=== PATIENT | female | born 1985 | race Caucasian/White ===

== ENCOUNTER 2018-11-16 18:50 | Inpatient (IN) | payer OTHER ==
[2018-11-16] MEDS ORDERED: Dinoprostone* 10 MG VAG.SUPP VAGINAL ONE (20:52)
[2018-11-16] MEDS ORDERED: Buffered Lidocaine 1% SYRIN* 1 ML/SYRINGE INTRADERM ONE (20:52)
[2018-11-16] MEDS ORDERED: Lactated Ringers 1000 ML Bag* 1,000 ML IV ONE (20:52)
[2018-11-16] MEDS ORDERED: Lactated Ringers 1000 ML Bag* 1,000 ML IV SCH (21:00)
--- NOTE | 2018-11-16 21:02 | HP ---
General Information - Reason for Visit Pt presents tonight at 40+3 for cervical ripening, plan for continued induction tomorrow. No complaints, active FMs, no VB/LOF. Does not feel any ctx. has been uncomplicated. - General Information Maternal Age: 33 Grav: 1 Para: 0 SAB: 0 IEA: 0 Estimated Due Date: 11/13/18 Determined By: LMP Gestational Age in Weeks/Days: 40+3 Maternal Blood Type and Rh: O Positive - Results this Serology/RPR Result: Non-Reactive Rubella Result: Non-Immune HBsAg Result: Negative HIV Result: Negative GBS Culture Result: Negative Past Medical History Delivery History: See Records Pertinent Past Medical History: Non-Contributory Pertinent Past Surgical History: None Pertinent Family History: Non-Contributory - Antepartal Records Antepartal Records: Reviewed, Uncomplicated Review of Systems Constitutional: Comfortable CV Complaint: No Respiratory: Shortness of Breath: No Gastrointestinal: No Nausea/Vomiting Genitourinary: No Dysuria, No Bleeding, No Leaking Fluid Musculoskeletal: No Complaint Neurological: No Headache Movement: Normal Exam Allergies/Adverse Reactions: Allergies No Known Allergies Allergy (Verified 11/16/18 19:44) VS normal, afebrile - Measurements Height: 5 ft 2 in Weight: 149 lb Weight in lbs: [phone] Body Mass Index (BMI): 27.2 Pre- Weight: 120 lb Weight Gained This : 29 lbs and 0 ozs - Exam Breast: Breast Exam Deferred CVA: No CVA Tenderness Heart: Normal Rhythm/Heart Sounds HEENT: No Significant Findings Lungs: Clear Bilaterally Rectal: Rectal Exam Deferred - Abdominal Exam Abdomen Exam: Non-Tender, Fundal Height Consistent with Dates Targeted Exam Findings Estimated Weight: 7 lbs Cervical Exam: 1cm Effacement: <50% Station: -3 Presenting Part: Vertex Membrane Status: Intact Bleeding/Discharge: None EFM Findings - External Monitor Findings Baseline Heart Rate: 140 External Monitor Findings: Accelerations Present, No Pattern of Variable or Late Decelerations, Variability Moderate, Baseline Stable Contractions: Irregular, Mild Assessment/Plan - Assessment 40+3 wks here for labor induction, starting with cervical ripening with unfavorable cervix. Cervidil placed. Very reassuring FHT. - Obstetrical Risk Factors Obstetrical Risk Factors: Post-Dates - Plan Plan: Cervical Ripening - Date/Time of Admission Date of Admission: 11/16/18 Time of Admission: 21:41
[2018-11-17] MEDS ORDERED: Misoprostol TAB* 100 MCG ONE (11:17)
[2018-11-17] MEDS ORDERED: Misoprostol TAB* 100 MCG VAGINAL ONE ×2 (11:19→14:47)
--- NOTE | 2018-11-17 11:19 | PN ---
Progress Note - Progress Note Date of Service: 11/17/18 Note: cervidil in overnight for cervical ripening . cervix 1 cm posterior -2 . vertex. attempted balloon placement sans success. will try misoprostol 25 mcg vaginally sag
[2018-11-17 18:38] LABS: Urine Benzodiazepine Screen None Detected (None Detect); Urine Opiates Screen None Detected (None Detect)
[2018-11-17 21:21] LABS: ABS Basophils 0.1 10^3/ul (0-0.2); ABS Lymphocytes 1.7 10^3/ul (1.0-4.8); ABS Monocytes 0.8 10^3/ul (0-0.8); ABS Neutrophils 6.7 10^3/ul (1.5-7.7); Eosinophil % 0.5 %; Hematocrit 34 % (35-47); Hemoglobin 11.7 g/dL (12.0-16.0); Mean Corpuscular HGB Conc 34 g/dL (31-36); Mean Corpuscular Hemoglobin 29 pg (27-31); Mean Corpuscular Volume 85 fL (80-97); Mean Platelet Volume 9.3 fL (7.4-10.4); Nucleated Red Blood Cells % 0.1; Platelet Count 214 10^3/uL (150-450); Red Blood Count 4.06 10^6 /uL (3.70-4.87); Red Cell Distribution Width 15 % (10-15); White Blood Count 9.3 10^3/uL (3.5-10.8)
[2018-11-17] MEDS ORDERED: OBEPIDURAL* 250 ML EPIDURAL ONE (22:04)
[2018-11-17] MEDS ORDERED: Oxytocin in LR* 20 UNITS/1,000 ML BAG IVPB SCH (23:00)
[2018-11-17] MEDS ORDERED: Sodium Citrate/Citric Acid* 15 ML UDC PO PRN (23:20)
[2018-11-17] MEDS ORDERED: Famotidine TAB* 20 MG PO PRN (23:20)
[2018-11-17] MEDS ORDERED: Lactated Ringers 1000 ML Bag* 1,000 ML IV ONE (23:20)
[2018-11-17] MEDS ORDERED: Phenylephrine 40 MCG/ML SYRINGE IV PUSH PRN ×2 (23:20)
[2018-11-17] MEDS ORDERED: Lactated Ringers 1000 ML Bag* 500 ML IV PRN ×2 (23:20)
[2018-11-17] MEDS ORDERED: EPHEDrine (Pressors)* 50 MG/ML VIAL IV PUSH PRN ×2 (23:20)
[2018-11-17] MEDS ORDERED: Lactated Ringers 1000 ML Bag* 1,000 ML IV SCH (23:45)
[2018-11-17] MEDS ORDERED: OBEPIDURAL* 250 ML EPIDURAL SCH (23:45)
--- NOTE | 2018-11-18 08:19 | PN ---
Progress Note - Progress Note Date of Service: 11/18/18 Note: S: Assuming care of Evelin tan 33 year-old G1 here for postdates induction of labor from Dr. Quintero. Pt resting comfortably in bed. Reports some lower abdominal tightening and pressure with UCs. Increasing in intensity over the last few hours. O: T 100 BP 129/84 HR 66 FHT 125bpm. Moderate variability. +Accels. No decels UCs q 2-3 min, IV pit at 4mu/min VE: anterior lip/100%/vtx +1 A: IUP at 40-5/7 in active labor No evidence of metabolic acidemia P: Anticipate trial of pushing soon
--- NOTE | 2018-11-18 11:07 | PN ---
Progress Note - Progress Note Date of Service: 11/18/18 Note: Quick Note: Pt pushing effectively since 920 with good decent initially. Over the last 30 min + caput descending without much change in position of head. Pt has been changing pushing positions from supine to side lie to squatting to hands and knees. Strong maternal pushing effort continues. O2 by mask intermittently due to Cat II FHT, variability maintained. Will continue to monitor closely. Dr. Hyde in house
[2018-11-18] MEDS ORDERED: Glycerin ADULT SUPP PR PRN (12:51)
[2018-11-18] MEDS ORDERED: Dibucaine 1% 28.35 GM TUBE PR PRN (12:51)
[2018-11-18] MEDS ORDERED: Acetaminophen TAB* 325 MG PO PRN (12:51)
[2018-11-18] MEDS ORDERED: Lactated Ringers 1000 ML Bag* 1,000 ML IV SCH (13:00)
--- NOTE | 2018-11-18 13:02 | PROCNOTE ---
[facility] OB: Delivery Note - Delivery A Date of : 11/18/18 Time of : 12:30 Sex: Male Weight at : 6 lb 11 oz Score 1 Minute: 7 Score 5 Minutes: 9 Gestational Age in Weeks and Days at Delivery: 40 Weeks and 5 Days Delivery Method: Low Vacuum Extraction, Vaginal Labor: Induced Did Patient attempt ?: N/A, No Previous Amniotic Fluid: Clear Estimated Blood Loss: 200 Anesthesia/Analgesia: CEI for Labor Delivered By: Cyrus Hyde - Nursery Level of Nursery: Regular/Bedside - Perineum Perineal Injury: Midline Episiotomy Perineal Repair: By Delivering Practioner - repaired with 3-0 vycril suture with good approximation of tissue under local injected lidocaine. - Events Delivery Events of Note: Pitocin During Labor, Other - Prolonged second stage of labor and maternal exhaustion.
[2018-11-18] MEDS ORDERED: Lidocaine 1% INJ* 10 MG/ML 30 ML SDV ONE (13:54)
[2018-11-18] MEDS: Witch Hazel PAD* JAR TOPICAL PRN (14:55)
[2018-11-18] MEDS: Docusate CAP* 100 MG PO SCH ×2 (14:56→21:05)
[2018-11-18] MEDS: Ibuprofen TAB* 600 MG PO PRN ×2 (14:56→21:05)
[2018-11-18] MEDS ORDERED: Simethicone TAB* 80 MG TAB.CHEW PO SCH (17:30)
[2018-11-19 06:20] LABS: ABS Basophils 0.1 10^3/ul (0-0.2); ABS Eosinophils 0.1 10^3/ul (0-0.6); ABS Lymphocytes 2.2 10^3/ul (1.0-4.8); ABS Monocytes 0.9 10^3/ul (0-0.8); Hematocrit 30 % (35-47); Hemoglobin 10.3 g/dL (12.0-16.0); Lymphocyte % 16.5 %; Mean Corpuscular HGB Conc 34 g/dL (31-36); Mean Corpuscular Hemoglobin 29 pg (27-31); Mean Corpuscular Volume 85 fL (80-97); Mean Platelet Volume 9.2 fL (7.4-10.4); Platelet Count 185 10^3/uL (150-450); Red Blood Count 3.54 10^6 /uL (3.70-4.87); Red Cell Distribution Width 15 % (10-15); White Blood Count 13.3 10^3/uL (3.5-10.8)
[2018-11-19] MEDS: Ibuprofen TAB* 600 MG PO PRN ×3 (08:25→21:52)
[2018-11-19] MEDS: Docusate CAP* 100 MG PO SCH ×3 (08:25→20:22)
[2018-11-19] MEDS ORDERED: Ferrous Gluconate TAB* 324 MG TAB PO SCH (09:00)
[2018-11-19] MEDS: Witch Hazel PAD* JAR TOPICAL PRN (18:30)
[2018-11-20] MEDS: Ibuprofen TAB* 600 MG PO PRN ×2 (03:53→10:05)
[2018-11-20] MEDS ORDERED: Measles, Mumps,Rubella VACC* 0.5 ML/VIAL SUBCUT ONE (09:06)
[2018-11-20] MEDS ORDERED: Varicella Virus Vaccine Live* 0.5 ML VIAL SUBCUT ONE (09:07)
[2018-11-20] MEDS: Docusate CAP* 100 MG PO SCH (10:05)
[2018-11-20 10:40] VITALS: BP 119/76
== END 2018-11-20 11:35 | disposition home or self-care (01) | DRG 560 ==
LOC: MCHOBOUT 18:50 → MCHOB 20:54
PROVIDERS: ADMIT Obstetrics & Gynecology; ATTEND Obstetrics & Gynecology
PROC: 10D07Z6 Extraction of Products of Conception, Vacuum, Via Natural or Artificial Opening (ICD-10-PCS; principal; 2018-11-18)
PROC: 3E0P7VZ Introduction of Hormone into Female Reproductive, Via Natural or Artificial Opening (ICD-10-PCS; 2018-11-18)
PROC: 10907ZC Drainage of Amniotic Fluid, Therapeutic from Products of Conception, Via Natural or Artificial Opening (ICD-10-PCS; 2018-11-18)
PROC: 3E033VJ Introduction of Other Hormone into Peripheral Vein, Percutaneous Approach (ICD-10-PCS; 2018-11-18)
PROC: 4A1HXCZ Monitoring of Products of Conception, Cardiac Rate, External Approach (ICD-10-PCS; 2018-11-18)
PROC: 0W8NXZZ Division of Female Perineum, External Approach (ICD-10-PCS; 2018-11-18)
DX: O48.0 Post-term pregnancy (principal); Z37.0 Single live birth; Z3A.40 40 weeks gestation of pregnancy; O77.0 Labor and delivery complicated by meconium in amniotic fluid; O75.81 Maternal exhaustion complicating labor and delivery; O63.1 Prolonged second stage (of labor)
CPT/HCPCS: 36415; 80307; 85025; 86850; 86900; 86901; 90707; A9270-GY; S0191

== ENCOUNTER 2021-09-26 19:57 | Inpatient (IN) ==
[2021-09-26 20:43] LABS: Hematocrit 35 % (35-47); Hemoglobin 11.8 g/dL (12.0-16.0); Mean Corpuscular HGB Conc 34 g/dL (31-36); Mean Corpuscular Hemoglobin 31 pg (27-31); Mean Corpuscular Volume 90 fL (80-97); Mean Platelet Volume 8.4 fL (7.4-10.4); Platelet Count 206 10^3/uL (150-450); Red Blood Count 3.82 10^6 /uL (3.70-4.87); Red Cell Distribution Width 15 % (10-15)
[2021-09-26] MEDS ORDERED: Buffered Lidocaine 1% SYRIN 1 ml INTRADERM ONE (21:26)
[2021-09-26] MEDS ORDERED: Lactated Ringers 1000 ml BAG 1,000 ML IV ONE ×2 (21:26→22:54)
[2021-09-26] MEDS ORDERED: Lactated Ringers 1000 ml BAG 1,000 ML IV SCH ×3 (22:00→23:00)
[2021-09-26 22:20] LABS: Urine Benzodiazepine Screen None Detected (None Detect); Urine Cannabinoids Screen None Detected (None Detect); Urine Opiates Screen None Detected (None Detect)
[2021-09-26] MEDS ORDERED: OBEPIDURAL (200 ML) 200 ML EPIDURAL ONE (22:21)
[2021-09-26] MEDS ORDERED: Sodium Citrate/Citric Acid LIQ 15 ML UDC PO PRN (22:54)
[2021-09-26] MEDS ORDERED: Lactated Ringers 1000 ml BAG 500 ML IV PRN (22:54)
[2021-09-26] MEDS ORDERED: EPHEDrine (Pressors) 50 MG/ML VIAL IV PUSH PRN ×2 (22:54)
[2021-09-26] MEDS ORDERED: Phenylephrine 40 mcg/mL 10mL (400mcg) SYRINGE IV PUSH PRN ×2 (22:54)
[2021-09-26] MEDS ORDERED: OBEPIDURAL (200 ML) 200 ML EPIDURAL SCH (23:00)
[2021-09-26 23:24] LABS: Urine Appearance Clear; Urine Bilirubin Negative (Negative); Urine Blood Negative (Negative); Urine Color Yellow; Urine Glucose Negative (Negative); Urine Ketones Negative (Negative); Urine Nitrite Negative (Negative); Urine Protein Negative (Negative); Urine Specific Gravity 1.008 (1.002-1.030); Urine Urobilinogen Negative (Negative)
[2021-09-27] MEDS ORDERED: Oxytocin in LR 20 UNITS/1,000 ML BAG IVPB ONE (04:43)
[2021-09-27] MEDS ORDERED: Witch Hazel PAD JAR TOPICAL PRN (06:17)
[2021-09-27] MEDS ORDERED: Varicella Virus Vaccine Live 0.5 ML VIAL SUBCUT ONE (06:17)
[2021-09-27] MEDS ORDERED: Glycerin ADULT 2.4 gm SUPP PR PRN (06:17)
[2021-09-27] MEDS ORDERED: Dibucaine 1% OINT 28.35 GM TUBE PR PRN (06:17)
[2021-09-28 06:06] LABS: ABS Basophils 0.1 10^3/ul (0-0.2); ABS Eosinophils 0.1 10^3/ul (0-0.6); ABS Lymphocytes 2.1 10^3/ul (1.0-4.8); ABS Monocytes 0.8 10^3/ul (0-0.8); ABS Neutrophils 7.1 10^3/ul (1.5-7.7); Eosinophil % 0.8 %; Hematocrit 36 % (35-47); Lymphocyte % 20.8 %; Mean Corpuscular HGB Conc 33 g/dL (31-36); Mean Corpuscular Hemoglobin 30 pg (27-31); Mean Corpuscular Volume 91 fL (80-97); Mean Platelet Volume 8.7 fL (7.4-10.4); Nucleated Red Blood Cells % 0.1; Platelet Count 218 10^3/uL (150-450); Red Blood Count 3.95 10^6 /uL (3.70-4.87); Red Cell Distribution Width 15 % (10-15); White Blood Count 10.2 10^3/uL (3.5-10.8)
[2021-09-29 08:18] VITALS: BP 117/71
== END 2021-09-29 11:40 | disposition home or self-care (01) | DRG 560 ==
LOC: MCHOBOUT 19:57 → MCHOB 20:22
PROVIDERS: ADMIT Midwife; ATTEND Midwife